=== PATIENT | male | born 1990 | race Caucasian/White ===

== ENCOUNTER 2021-11-07 16:19 | Emergency (ER) | payer MEDICAID ==
[~2021-11-07] VITALS: Ht 208.3 cm; Wt 136.4 kg
[2021-11-07 16:32] VITALS: BP 131/99
[2021-11-07] MEDS ORDERED: FURO40TA4 PO (17:43)
[2021-11-07] MEDS ORDERED: furosemide 20MG tablet PO ONE (17:45)
== END 2021-11-07 18:14 | disposition home or self-care (01) ==
LOC: ER 16:19
DX: N50.89 Other specified disorders of the male genital organs (principal); N50.812 Left testicular pain; N50.811 Right testicular pain; R60.9 Edema, unspecified; Z59.00 Homelessness unspecified
CPT/HCPCS: 99283

== ENCOUNTER 2021-12-03 17:19 | Inpatient (IN) | payer MEDICAID ==
[~2021-12-03] VITALS: Ht 208.3 cm; Wt 171.0 kg
[~2021-12-03 17:19] MED LIST: FURO40TA4 PO; atropine 0.1mg/ml 10ml syringe ONE; epiNEPHrine 0.1mg/ml 10ml syringe ONE; etomidate 2mg/ml inj. ONE; sod chloride 0.9% 10ml flush syringe IV ONE; sodium bicarbonate (8.4%) 1 mEq/ml syringe ONE
[2021-12-03] MEDS ORDERED: vancomycin inj 2,000 MG in normal saline 500ml IV soln 500 ML IV ONE (17:55)
[2021-12-03] MEDS ORDERED: normal saline 1000ML IV soln IVB ONE ×2 (17:55→19:15)
[2021-12-03] MEDS ORDERED: diltiazem 5mg/ml 5ml inj. IV ONE ×2 (18:25→19:50)
[2021-12-03] MEDS ORDERED: calcium gluconate inj. 1 GM in normal saline 100ml IV soln 100 ML IV ONE (18:25)
[2021-12-03] MEDS: CefTRIAXone 2gm/NS 100ml IVPB 100 ML IV SCH (19:02)
--- NOTE | 2021-12-03 19:02 | NUR ---
ER PHYSICIAN WALKED IN PT'S ROOM I WAS PLACING ANOTHER IV ON PT. I REPORTED THAT PT'S HR HAS NOT IMPROVED MUCH W/ FIRST DOSE OF CARDIZEM. HE WILL PUT I ORDERS FOR A CARDIZEM DRIP.
[2021-12-03 19:03] LABS: BASOPHILS # (AUTO) 0.1 X10'3 (0-0.2); BASOPHILS % (AUTO) 0.8 % (0-1); EOSINOPHILS % (AUTO) 0.2 % (0-6); HEMATOCRIT 43.4 % (42.0-52.0); HEMOGLOBIN 14.1 g/dl (14.0-17.9); LYMPHOCYTES # (AUTO) 2.1 X10'3 (1.1-4.8); LYMPHOCYTES % (AUTO) 17.1 % (21-51); MEAN CORPUSCULAR HEMOGLOBIN 28.3 PG (27.0-31.0); MEAN CORPUSCULAR HGB CONC 32.4 g/dL (33.0-36.5); MEAN CORPUSCULAR VOLUME 87.2 FL (78-98); MEAN PLATELET VOLUME 9.3 FL (7.4-10.4); MONOCYTES # (AUTO) 0.6 X10'3 (0-0.9); MONOCYTES % (AUTO) 4.8 % (2-12); NEUTROPHILS # (AUTO) 9.5 X10'3 (1.8-7.7); NEUTROPHILS % (AUTO) 77.1 % (42-75); PLATELET COUNT 104 X10'3 (140-440); RED BLOOD COUNT 4.98 X10'6 (4.70-6.10); RED CELL DISTRIBUTION WIDTH 15.4 % (11.5-14.5); WHITE BLOOD COUNT 12.3 X10'3 (4.5-11.0)
[2021-12-03] MEDS ORDERED: diltiazem-D5W 125mg/125ml 125 ML IV SCH (19:05)
[2021-12-03 19:06] LABS: ALANINE AMINOTRANSFERASE 93 U/L (12-78); ALBUMIN 2.5 G/DL (3.4-5.0); ALBUMIN/GLOBULIN RATIO 0.6 (1.1-1.5); ALKALINE PHOSPHATASE 80 IU/L (46-116); ANION GAP 13 (8-16); ASPARTATE AMINO TRANSFERASE 104 U/L (10-37); BILIRUBIN,TOTAL 4.2 MG/DL (0.1-1.0); BLOOD UREA NITROGEN 18 MG/DL (7-18); CALCIUM 8.3 MG/DL (8.5-10.1); CHLORIDE 100 MMOL/L (99-107); CREATININE 1.06 MG/DL (0.60-1.10); GLUCOSE 119 MG/DL (70-104); MAGNESIUM 1.7 MG/DL (1.5-2.4); POTASSIUM 4.1 MMOL/L (3.5-5.1); SODIUM 134 MMOL/L (135-145); TOTAL CARBON DIOXIDE 21.5 MMOL/L (24-32); TOTAL PROTEIN 6.7 G/DL (6.4-8.2); eGFR 80 ML/MIN
--- NOTE | 2021-12-03 19:24 | NUR ---
PHARMACY IS GETTING ALE BALESIP READY/.
--- NOTE | 2021-12-03 19:54 | NUR ---
DR BURT BACK IN ROOM. UPDATED HIM ON PT'S STATUS
[2021-12-03] MEDS ORDERED: HYDROcodone/acetaminophen 5mg/325mg tablet PO PRN (20:30)
[2021-12-03] MEDS ORDERED: diphenhydrAMINE 50 mg/ml inj IV PRN (20:30)
[2021-12-03] MEDS ORDERED: mag hydrox/Alum hydrox/simeth 30ml oral suspension PO PRN (20:30)
[2021-12-03] MEDS ORDERED: morphine 2 MG/ML inj. syringe IV PRN (20:30)
[2021-12-03] MEDS ORDERED: acetaminophen 325mg tablet PO PRN ×2 (20:30)
[2021-12-03] MEDS ORDERED: ondansetron/PF 4mg/2ml inj IV PRN (20:30)
[2021-12-03] MEDS ORDERED: ondansetron 4mg rapidly disintigrating tab PO PRN (20:30)
[2021-12-03] MEDS ORDERED: diphenhydrAMINE 25mg capsule PO PRN (20:30)
[2021-12-03] MEDS ORDERED: magnesium hydroxide 30ml (MOM) UD suspension PO PRN (20:30)
[2021-12-03] MEDS ORDERED: LIDOcaine 2% 10ml TOPICAL JELLY (Urojet) TP ONE (20:30)
[2021-12-03] MEDS ORDERED: bisacodyl 10mg suppository rectal RC PRN (20:30)
[2021-12-03] MEDS ORDERED: acetaminophen 650mg rectal suppository RC PRN (20:30)
[2021-12-03] MEDS ORDERED: dextrose 50%-water 50ml dispensing syringe IV PRN (20:45)
[2021-12-03] MEDS ORDERED: haloperidol lactate 5mg/ml inj IM PRN (20:45)
[2021-12-03] MEDS ORDERED: haloperidol 5mg tablet PO PRN (20:45)
[2021-12-03] MEDS: normal saline 1000ml 1,000 ML IV SCH (20:48)
[2021-12-03 20:59] LABS: APTT 25 SECONDS (22-32)
[2021-12-03] MEDS ORDERED: temazepam 15mg capsule PO PRN (21:00)
[2021-12-03 21:03] LABS: CLARITY,URINE CLEAR (Clear); GLUCOSE, URINE NEGATIVE (Neg); KETONES,URINE NEGATIVE (Neg); LEUKOCYTE ESTERASE ,URINE NEGATIVE (Neg); NITRITES, URINE NEGATIVE (Neg); OCCULT BLOOD,URINE NEGATIVE (Neg); PH,URINE 5.5 (4.8-8.0); PROTEIN,URINE TRACE mg/dl (Neg)
[2021-12-03 21:04] LABS: COLOR,URINE AMBER (Yellow); UA COLLECTION TYPE URINAL
[2021-12-03] MEDS ORDERED: azithromycin/NS 500mg/250ml 250 ML IV SCH (21:10)
[2021-12-03 21:13] LABS: BACTERIA,URINE NONE SEEN /HPF (Neg); RBC,URINE NONE SEEN /HPF (0-2); SQUAMOUS EPITHELIAL CELL,UR FEW /LPF (FEW); WBC,URINE 0-4 /HPF (0-4)
[2021-12-03 21:14] LABS: MUCUS STRANDS MODERATE /LPF (Neg)
[2021-12-03 21:15] LABS: URINE AMPHETAMINE SCREEN NEGATIVE (Neg); URINE BARBITUATE SCREEN NEGATIVE (Neg); URINE BENZODIAZEPINES SCREEN NEGATIVE (Neg); URINE CANNABINOID SCREEN POSITIVE (Neg); URINE COCAINE SCREEN NEGATIVE (Neg); URINE METHADONE SCREEN NEGATIVE (Neg); URINE OPIATE SCREEN NEGATIVE (Neg); URINE PHENCYCLIDINE SCREEN NEGATIVE (Neg)
[2021-12-03 21:21] LABS: HEMOGLOBIN A1C 6.1 % (4.5-6.2)
[2021-12-03 21:30] LABS: CREATINE KINASE 326 U/L (39-308); ETHANOL < 0.010 GM/DL (0.0-0.010); LIPASE 96 U/L (73-393)
[2021-12-03] MEDS: ipratropium/albuterol 3ml nebule NEB PRN (21:36)
[2021-12-03] MEDS: LORazepam 2 mg/ml vial IV PRN (21:49)
[2021-12-03] MEDS: thiamine 100mg/ml 2ml inj. IV SCH (21:49)
[2021-12-03 21:55] LABS: HIV ANTIBODY 1&2 RAPID NON-REACTIVE (Neg)
--- NOTE | 2021-12-03 22:00 | NUR ---
HAD TO HAVE [address] WOODALL PT'S TESTICLES ARE VERY EDEMATOUS.
--- NOTE | 2021-12-03 22:21 | NUR ---
DR SHUKLA IN ROOM TALKING W/ PT
[2021-12-03] MEDS ORDERED: furosemide 40mg/4ml inj IV ONE (22:25)
[2021-12-04] VITALS (16 sets, daily range): BP systolic 91–133; BP diastolic 59–94
--- NOTE | 2021-12-04 01:17 | NUR ---
0000: Report from LEN Diez at ER to admit pt to PCU unit. 0030: Pt has an order for IV Cardizen to run for 5ml/hr. On arrival on unit, LEN Diez stated she titrated Cardizem IV to 15ml/hr because pt's HR was high. Current active orders for Cardizen drip according to MAR is 5ml/hr. RN on PCU unit called Dr Romo to confirm orders. At this time, pt HR was unstable between 56-68.BP-110/87. MD Romo advised to hold Cardizem drip for now and re-start at 5ml/hr if HR start increasing. 0100: HR is now in the 94-126. BP-124/73. IV cardizem re-started at 5ml/hr per MD Romo's advice. Pt is now sleeping. I will continue to monitor. Unit Charge LEN Mcmillan, aware
--- NOTE | 2021-12-04 01:35 | NUR ---
Can you please re-schedule Zithromax for the pt. He was scheduled for 2099 but not yet given. The time now is 133. Thanks. Paged pharmacy
[2021-12-04] MEDS ORDERED: azithromycin/NS 500mg/250ml 250 ML IV SCH (03:00)
--- NOTE | 2021-12-04 05:30 | NUR ---
Pt appeared very anxious and restless. HR-146. Administered IV Ativan per protocol. Will continue to monitor. 0600: BP- 100/78, P-78. Pt appeared a little relaxed. pt stated "I feel ok and a little calm now".
--- NOTE | 2021-12-04 06:00 | NUR ---
Upon getting on shift this morning, patient was sleeping but respirations were 30 and patient was moaning in his sleep. I woke him up to ask if he was feeling okay and if he needed anything. He stated he was very anxious, but otherwise he was okay. Ativan was given and patient went back to sleep.
--- NOTE | 2021-12-04 06:00 | NUR ---
Patient in room PCU 3027. I have received report from Janna HARRINGTON and had the opportunity to ask questions and assume patient care.
[2021-12-04] MEDS: LORazepam 2 mg/ml vial IV PRN ×3 (06:12→15:22)
[2021-12-04 06:42] LABS: ALANINE AMINOTRANSFERASE 81 U/L (12-78); ALBUMIN 2.2 G/DL (3.4-5.0); ALBUMIN/GLOBULIN RATIO 0.6 (1.1-1.5); ALKALINE PHOSPHATASE 65 IU/L (46-116); ANION GAP 12 (8-16); ASPARTATE AMINO TRANSFERASE 89 U/L (10-37); BILIRUBIN,TOTAL 3.4 MG/DL (0.1-1.0); BLOOD UREA NITROGEN 16 MG/DL (7-18); BUN/CREATININE RATIO 16.5 (5.4-32.0); CALCIUM 7.2 MG/DL (8.5-10.1); CHLORIDE 105 MMOL/L (99-107); CHOL/HDL RATIO 6.5 (0.00-4.99); CHOLESTEROL 84 MG/DL (0-200); CREATININE 0.97 MG/DL (0.60-1.10); GLUCOSE 97 MG/DL (70-104); HDL CHOLESTEROL 13 MG/DL (35-60); LDL CHOLESTEROL 69 MG/DL (50-100); POTASSIUM 3.4 MMOL/L (3.5-5.1); SODIUM 141 MMOL/L (135-145); TOTAL CARBON DIOXIDE 24.2 MMOL/L (24-32); TOTAL PROTEIN 6.1 G/DL (6.4-8.2); TRIGLYCERIDES 61 MG/DL (20-135); eGFR 89 ML/MIN
[2021-12-04 06:43] LABS: BASOPHILS % (AUTO) 0.4 % (0-1); EOSINOPHILS % (AUTO) 0.1 % (0-6); HEMATOCRIT 41.5 % (42.0-52.0); HEMOGLOBIN 13.4 g/dl (14.0-17.9); LYMPHOCYTES # (AUTO) 1.7 X10'3 (1.1-4.8); LYMPHOCYTES % (AUTO) 13.7 % (21-51); MEAN CORPUSCULAR HEMOGLOBIN 28.3 PG (27.0-31.0); MEAN CORPUSCULAR HGB CONC 32.3 g/dL (33.0-36.5); MEAN CORPUSCULAR VOLUME 87.7 FL (78-98); MEAN PLATELET VOLUME 9.1 FL (7.4-10.4); MONOCYTES # (AUTO) 0.6 X10'3 (0-0.9); NEUTROPHILS # (AUTO) 10.3 X10'3 (1.8-7.7); NEUTROPHILS % (AUTO) 80.8 % (42-75); PLATELET COUNT 181 X10'3 (140-440); RED BLOOD COUNT 4.73 X10'6 (4.70-6.10); RED CELL DISTRIBUTION WIDTH 15.8 % (11.5-14.5); WHITE BLOOD COUNT 12.8 X10'3 (4.5-11.0)
--- NOTE | 2021-12-04 07:04 | NUR ---
PAGER ID: [phone] MESSAGE: [id number] Kelly Martin: Pt heart rate trending in 150s-160s. Do you want Cardizem drip adjusted? [facility] [id number]
--- NOTE | 2021-12-04 07:06 | NUR ---
Problems reprioritized. Patient report given, LEN Eagle, questions answered & plan of care reviewed with .
--- NOTE | 2021-12-04 07:10 | NUR ---
Patient HR trending in 150s-160s. Brian paged and telephone order was given to titrate cardizem drip from 5ml/hr to 10ml/hr. Patient continued to trend at the same rate following this rate change.
--- NOTE | 2021-12-04 07:15 | NUR ---
Verbal telephone order from MD to titrate cardizem drip to 10ml/hr from 5ml/hr
[2021-12-04] MEDS ORDERED: pantoprazole 40mg Tablet.DR PO SCH (07:30)
[2021-12-04] MEDS ORDERED: cefTRIAXone 1g/NS 100ml IVPB 100 ML IV SCH (08:00)
[2021-12-04] MEDS: CefTRIAXone 2gm/NS 100ml IVPB 100 ML IV SCH (08:00)
[2021-12-04] MEDS ORDERED: potassium Cl 20 mEq SR tablet PO PRN (08:20)
[2021-12-04] MEDS ORDERED: magnesium 2GM in 50ml NS 50 ML IV PRN (08:20)
[2021-12-04] MEDS ORDERED: magnesium 4gm in 100ml NS 100 ML IV PRN (08:20)
[2021-12-04] MEDS ORDERED: potassium CL 10mEq/100ml bag 100 ML IV PRN (08:20)
[2021-12-04] MEDS ORDERED: diltiazem-NS 100mg/100ml 100 ML IV SCH (09:00)
[2021-12-04] MEDS: nicotine 21mg patch - 24 hr TD SCH (10:16)
[2021-12-04] MEDS: thiamine 100mg/ml 2ml inj. IV SCH ×3 (10:16→21:00)
[2021-12-04] MEDS: docusate sod 100mg capsule PO SCH ×2 (10:17→20:00)
[2021-12-04] MEDS: folic acid 1mg/0.2ml inj IV SCH (10:17)
--- NOTE | 2021-12-04 13:00 | NUR ---
Patient still trending 150s/160s. Respirations 42 and patient starting to have problems breathing. Was spitting up bright red blood that he states is "from his swollen tonsils" but this was not told to me in report, nor had i noticed it earlier in my shift. Dr Brian Carey.
--- NOTE | 2021-12-04 13:18 | NUR ---
PAGER ID: [phone] MESSAGE: [id number] Kelly Martin: Heart rate continues to trend 150s/160s. Patients respirations are 42. Spitting up bright red blood that is new to me. Angeli [facility] ext [phone]
[2021-12-04] MEDS ORDERED: furosemide 10 MG/1 ML 10ml inj IV ONE (13:50)
[2021-12-04] MEDS ORDERED: carVEDilol 3.125mg tablet PO SCH ×2 (13:50→20:00)
--- NOTE | 2021-12-04 14:00 | NUR ---
Dr Torres called for another nurses patient, i ended up picking up the phone and asked her if she had gotten my page. She said she had not. I let her know that patient was still trending high, as well as the bright red blood and trouble breathing. She asked me to look at his echo report and tell her what it said. I read off the report to her and she said to stop the patient cardizem drip STAT, and ordered the following be done: 60mg Lasix STAT dose and then BID. 3.125 coreg STAT, then BID. Lisinopril 5mg STAT, then BID. Said to put patient on bipap if he continued to have issues breathing.
[2021-12-04] MEDS: lisinopril 5mg tablet PO SCH (14:15)
--- NOTE | 2021-12-04 14:21 | NUR ---
Rapid response called due to patient respirations being high, patient saying he couldnt breathe, low 02 saturation of 80, extreme anxiety. paged.
[2021-12-04] MEDS: ipratropium/albuterol 3ml nebule NEB PRN (14:25)
[2021-12-04] MEDS ORDERED: amiodarone 150mg/dext, iso-os 100 ML IV ONE (14:35)
[2021-12-04] MEDS ORDERED: digoxin 250mcg/ml 2ml ampule IV ONE (14:35)
[2021-12-04 14:44] LABS: ABG BASE EXCESS -5.3 mmol/L (-2.0-2.0); ABG HCO3 17.5 mmol/L (22.0-26.0); ABG OXYGEN SATURATION 88.7 % (94-97); ABG PCO2 (T) 27.5 mmHg (35.0-48.0); ABG PO2 (T) 55.7 mmHg (75.0-100.0); ALLEN'S TEST POSITIVE; FCOHb 1.3 % (0.0-3.9); FLOW 3 L/min; FMetHb 0.4 % (0.0-1.5); FO2Hb 87.2 % (94-97); TOTAL HEMOGLOBIN 15.4 G/dl (14.0-18.0)
--- NOTE | 2021-12-04 15:34 | NUR ---
PAGER ID: [phone] MESSAGE: [id number] Kelly Martin: post 60mg Lasix, only 50cc out in 80 mins. [facility] 0018
--- NOTE | 2021-12-04 15:35 | NUR ---
Second rapid response called. Patient continuing to destat with 02 in 70s. paged. Patient had only 50 output from lasix. Catheter was not able to drain, patient has extreme edema, especially in scrotal area. Doctor said to remove samaniego to see if patient could urinate on his own. He was not able to. Tried to put in new samaniego, but could not find insertion site of penis due to such extreme edema. Bladder scanned for greater than 1359 volume. notified. stated she could page urologist. Patient continued to have extremely high respirations and was panicking stating "I cant breathe! i tap out! please please i cant breathe" patient ripped bipap off several times. RT switched to high flow machine and patient still stated he could not breathe. Ativan and haldol administered to try and calm patients anxiety. Encouraged him to take deep breaths and try to calm down and not fight staff on trying to help him. Patient started to calm down a little bit after meds, but still continued to have high respirations and trouble breathing.
[2021-12-04 15:51] LABS: ABG HCO3 13.9 mmol/L (22.0-26.0); ABG OXYGEN SATURATION 89.7 % (94-97); ABG PCO2 (T) 23.9 mmHg (35.0-48.0); ABG PO2 (T) 62.2 mmHg (75.0-100.0); ALLEN'S TEST POSITIVE; FCOHb 0.6 % (0.0-3.9); FLOW 40 L/min; FMetHb 0.3 % (0.0-1.5); FO2Hb 88.9 % (94-97); TOTAL HEMOGLOBIN 15.6 G/dl (14.0-18.0)
[2021-12-04] MEDS: amiodarone/D5 360MG/200ML BAG 200 ML IV SCH ×2 (15:55→21:49)
--- NOTE | 2021-12-04 16:08 | NUR ---
BLADDER SCAN SHOWED GREATER THAN 1700, MD SAID TO PULL WOODALL CATH TO SEE IF PATIENT CAN VOID. ATTEMPT REINSERTION IF UNABLE TO VOID PER MD. REQUESTING UROLOGY CONSULT.
[2021-12-04 16:23] LABS: ALANINE AMINOTRANSFERASE 94 U/L (12-78); ALBUMIN 2.6 G/DL (3.4-5.0); ALBUMIN/GLOBULIN RATIO 0.6 (1.1-1.5); ALKALINE PHOSPHATASE 80 IU/L (46-116); ANION GAP 17 (8-16); ASPARTATE AMINO TRANSFERASE 102 U/L (10-37); BILIRUBIN,TOTAL 3.8 MG/DL (0.1-1.0); BLOOD UREA NITROGEN 19 MG/DL (7-18); CHLORIDE 100 MMOL/L (99-107); GLUCOSE 127 MG/DL (70-104); POTASSIUM 4.4 MMOL/L (3.5-5.1); SODIUM 136 MMOL/L (135-145); TOTAL CARBON DIOXIDE 18.8 MMOL/L (24-32); TOTAL PROTEIN 7.3 G/DL (6.4-8.2); eGFR > 90 ML/MIN
[2021-12-04 16:25] LABS: BASOPHILS # (AUTO) 0.1 X10'3 (0-0.2); BASOPHILS % (AUTO) 0.3 % (0-1); EOSINOPHILS % (AUTO) 0 % (0-6); LYMPHOCYTES # (AUTO) 3.2 X10'3 (1.1-4.8); LYMPHOCYTES % (AUTO) 15.8 % (21-51); MEAN PLATELET VOLUME 9.4 FL (7.4-10.4); MONOCYTES # (AUTO) 1.9 X10'3 (0-0.9); MONOCYTES % (AUTO) 9.5 % (2-12); NEUTROPHILS # (AUTO) 14.9 X10'3 (1.8-7.7); NEUTROPHILS % (AUTO) 74.4 % (42-75); PLATELET COUNT 191 X10'3 (140-440)
--- NOTE | 2021-12-04 16:30 | NUR ---
Patient started to panic again saying he couldnt breathe. "I cant breathe, please help me. I need a break, im tapping out, im so tired and so thirsty" Vital signs were 79 02 saturation, BP 155/110, i came and told charge nurse immediately, and went right back into the room. RN walked by the room and noticed patient was panicking and i needed help. Patient turned to his right side as he said he could breath better on his side. Started to look purple in his facial area, and then he turned over to his left side. Suddenly patient became unresponsive and stopped breathing. Allyn blue called. Compressions started at 1640. Code team arrived at 1642. Patient transported to ICU at 1713.
[2021-12-04 16:56] LABS: HEMATOCRIT 44.1 % (42.0-52.0); HEMOGLOBIN 14.1 g/dl (14.0-17.9); MEAN CORPUSCULAR HEMOGLOBIN 29.2 PG (27.0-31.0); MEAN CORPUSCULAR HGB CONC 31.9 g/dL (33.0-36.5); MEAN CORPUSCULAR VOLUME 91.5 FL (78-98); RED BLOOD COUNT 4.82 X10'6 (4.70-6.10); RED CELL DISTRIBUTION WIDTH 15.6 % (11.5-14.5)
[2021-12-04 17:44] LABS: ABG BASE EXCESS -11.3 mmol/L (-2.0-2.0); ABG HCO3 15.5 mmol/L (22.0-26.0); ABG OXYGEN SATURATION 88.9 % (94-97); ABG PCO2 (T) 42.4 mmHg (35.0-48.0); ABG PO2 (T) 79.5 mmHg (75.0-100.0); ALLEN'S TEST POSITIVE; FCOHb 0.6 % (0.0-3.9); FMetHb 0.4 % (0.0-1.5); PATIENT TEMPERATURE 39.4; PEEP 5 cm H2O; RESPIRATORY RATE 18 b/min; TIDAL VOLUME 500 mL; TOTAL HEMOGLOBIN 14.1 G/dl (14.0-18.0)
[2021-12-04] MEDS ORDERED: DOBUTamine-DoBUTrex 500mg/D5W 250 ML IV PRN ×2 (18:20→21:20)
[2021-12-04 18:42] LABS: SODIUM 133 MMOL/L (135-145)
[2021-12-04 18:45] LABS: BASOPHILS % (AUTO) 0.2 % (0-1); EOSINOPHILS % (AUTO) 0.1 % (0-6); HEMATOCRIT 42.2 % (42.0-52.0); HEMOGLOBIN 13.2 g/dl (14.0-17.9); LYMPHOCYTES # (AUTO) 2.5 X10'3 (1.1-4.8); LYMPHOCYTES % (AUTO) 14.7 % (21-51); MEAN CORPUSCULAR HEMOGLOBIN 28.4 PG (27.0-31.0); MEAN CORPUSCULAR HGB CONC 31.4 g/dL (33.0-36.5); MEAN CORPUSCULAR VOLUME 90.3 FL (78-98); MEAN PLATELET VOLUME 9.7 FL (7.4-10.4); MONOCYTES % (AUTO) 5.5 % (2-12); NEUTROPHILS # (AUTO) 13.7 X10'3 (1.8-7.7); NEUTROPHILS % (AUTO) 79.5 % (42-75); PLATELET COUNT 173 X10'3 (140-440); RED BLOOD COUNT 4.67 X10'6 (4.70-6.10); RED CELL DISTRIBUTION WIDTH 16.7 % (11.5-14.5); WHITE BLOOD COUNT 17.3 X10'3 (4.5-11.0)
--- NOTE | 2021-12-04 18:47 | NUR ---
I was in patients room from 1300 until ICU transfer at 1713. Patient needed 1:1 care and was not in appropriate condition for this floor.
[2021-12-04 18:55] LABS: APTT 31 SECONDS (22-32); D-DIMER 28.41 MG/L FEU (0-0.50)
[2021-12-04 19:05] LABS: ALANINE AMINOTRANSFERASE 96 U/L (12-78); ALBUMIN 2.4 G/DL (3.4-5.0); ALBUMIN/GLOBULIN RATIO 0.5 (1.1-1.5); ALKALINE PHOSPHATASE 76 IU/L (46-116); ANION GAP 15 (8-16); ASPARTATE AMINO TRANSFERASE 113 U/L (10-37); BILIRUBIN,TOTAL 3.6 MG/DL (0.1-1.0); BLOOD UREA NITROGEN 20 MG/DL (7-18); BUN/CREATININE RATIO 11.6 (5.4-32.0); CALCIUM 7.9 MG/DL (8.5-10.1); CHLORIDE 99 MMOL/L (99-107); CREATININE 1.72 MG/DL (0.60-1.10); MAGNESIUM 2.1 MG/DL (1.5-2.4); PHOSPHORUS 6.2 MG/DL (2.3-4.5); POTASSIUM 4.6 MMOL/L (3.5-5.1); TOTAL CARBON DIOXIDE 19.3 MMOL/L (24-32); TOTAL PROTEIN 6.8 G/DL (6.4-8.2); eGFR 46 ML/MIN
[2021-12-04 19:14] LABS: GLUCOSE 123 MG/DL (70-104)
[2021-12-04] MEDS ORDERED: furosemide 10 MG/1 ML 10ml inj IV SCH (20:00)
[2021-12-04] MEDS ORDERED: lisinopril 5mg tablet PO SCH (20:00)
[2021-12-04] MEDS ORDERED: NORepinephrine 8mg/ 250ml NS 250 ML IV ONE ×2 (20:06→22:22)
--- NOTE | 2021-12-04 21:30 | NUR ---
RN Note -Dr. Carbone still at bedside putting in lines and stabilizing patient. Pt on multiple cardiac drips. Pt has not had any purposeful responses to stimuli, titrating sedation for hemodynamic stability.
[2021-12-04] MEDS: propofol 1000mg/100ml bottle 100 ML IV SCH (21:44)
[2021-12-04 22:01] LABS: ABG HCO3 20.3 mmol/L (22.0-26.0); ABG OXYGEN SATURATION 97.5 % (94-97); ABG PCO2 (T) 31.2 mmHg (35.0-48.0); ABG PO2 (T) 92.4 mmHg (75.0-100.0); ALLEN'S TEST POSITIVE; FCOHb 0.4 % (0.0-3.9); FMetHb 0.4 % (0.0-1.5); FO2Hb 96.7 % (94-97); PATIENT TEMPERATURE 36.8; PEEP 5 cm H2O; RESPIRATORY RATE 18 b/min; TIDAL VOLUME 500 mL; TOTAL HEMOGLOBIN 14.8 G/dl (14.0-18.0)
[2021-12-04 22:04] LABS: OXYGEN SATURATION (MIXED VEN) 55.7 % (60-80); PO2 MIXED VENOUS (TEMP COR) 27.7 mmHg (35-46)
[2021-12-04] MEDS: epiNEPHrine inj 10 MG in normal saline 250ml IV soln 240 ML IV PRN (22:45)
[2021-12-05] VITALS (34 sets, daily range): BP systolic 92–199; BP diastolic 57–91
[2021-12-05] MEDS ORDERED: vancomycin 1,750 MG in NS 350ml IV soln IV ONE ×2
[2021-12-05 02:41] LABS: ALANINE AMINOTRANSFERASE 146 U/L (12-78); ALBUMIN 2.3 G/DL (3.4-5.0); ALBUMIN/GLOBULIN RATIO 0.6 (1.1-1.5); ALKALINE PHOSPHATASE 70 IU/L (46-116); ANION GAP 10 (8-16); ASPARTATE AMINO TRANSFERASE 217 U/L (10-37); BILIRUBIN,TOTAL 3.5 MG/DL (0.1-1.0); BLOOD UREA NITROGEN 22 MG/DL (7-18); BUN/CREATININE RATIO 17.7 (5.4-32.0); CALCIUM 7.7 MG/DL (8.5-10.1); CHLORIDE 102 MMOL/L (99-107); CREATININE 1.24 MG/DL (0.60-1.10); GLUCOSE 165 MG/DL (70-104); POTASSIUM 3.8 MMOL/L (3.5-5.1); SODIUM 135 MMOL/L (135-145); TOTAL CARBON DIOXIDE 22.6 MMOL/L (24-32); TOTAL PROTEIN 6.4 G/DL (6.4-8.2); TRIGLYCERIDES 56 MG/DL (20-135); eGFR 67 ML/MIN
[2021-12-05 02:43] LABS: BASOPHILS % (AUTO) 0.1 % (0-1); EOSINOPHILS % (AUTO) 0 % (0-6); HEMATOCRIT 39.8 % (42.0-52.0); HEMOGLOBIN 12.7 g/dl (14.0-17.9); LYMPHOCYTES # (AUTO) 1.3 X10'3 (1.1-4.8); LYMPHOCYTES % (AUTO) 8.6 % (21-51); MEAN CORPUSCULAR HEMOGLOBIN 27.6 PG (27.0-31.0); MEAN CORPUSCULAR VOLUME 86.4 FL (78-98); MONOCYTES # (AUTO) 0.6 X10'3 (0-0.9); MONOCYTES % (AUTO) 4.3 % (2-12); NEUTROPHILS # (AUTO) 12.8 X10'3 (1.8-7.7); PLATELET COUNT 123 X10'3 (140-440); RED CELL DISTRIBUTION WIDTH 15.6 % (11.5-14.5); WHITE BLOOD COUNT 14.7 X10'3 (4.5-11.0)
[2021-12-05 03:26] LABS: ABG BASE EXCESS -2.9 mmol/L (-2.0-2.0); ABG HCO3 19.9 mmol/L (22.0-26.0); ABG OXYGEN SATURATION 95.2 % (94-97); ABG PCO2 (T) 28.7 mmHg (35.0-48.0); ABG PO2 (T) 72.2 mmHg (75.0-100.0); ALLEN'S TEST POSITIVE; FCOHb 0.2 % (0.0-3.9); FMetHb 0.4 % (0.0-1.5); FO2Hb 94.6 % (94-97); PATIENT TEMPERATURE 36.5; PEEP 5 cm H2O; RESPIRATORY RATE 18 b/min; TIDAL VOLUME 500 mL
[2021-12-05 03:28] LABS: OXYGEN SATURATION (MIXED VEN) 61.2 % (60-80); PO2 MIXED VENOUS (TEMP COR) 34.6 mmHg (35-46)
[2021-12-05] MEDS: amiodarone/D5 360MG/200ML BAG 200 ML IV SCH ×4 (04:56→20:14)
[2021-12-05] MEDS: nicotine 21mg patch - 24 hr TD SCH (08:00)
[2021-12-05] MEDS ORDERED: vancomycin/NS 1 GM ADD-VANTAGE 250 ML IV SCH (08:00)
[2021-12-05] MEDS: piperacillin/tazo 3.375gm/50ml 50 ML IV SCH ×3 (08:00→15:56)
[2021-12-05] MEDS: docusate sod 100mg capsule PO SCH ×2 (08:00→20:00)
[2021-12-05] MEDS ORDERED: amiodarone 150mg/dext, iso-os 100 ML IV ONE ×2 (08:00→08:06)
[2021-12-05 08:35] LABS: MAGNESIUM 1.6 MG/DL (1.5-2.4); PHOSPHORUS 4.6 MG/DL (2.3-4.5)
[2021-12-05 09:50] LABS: PLATELET COUNT 150 X10'3 (140-440)
[2021-12-05 09:52] LABS: APTT 32 SECONDS (22-32)
--- NOTE | 2021-12-05 09:56 | NUR ---
hemodynamically unstable, Dr Carbone in x 2 this am. Titrating dobutamine and levophed per Dr Carbone after discussion this am. Increased dobutmine but had runs of vtach monitor didnt alarm so decreased back to 5, cardiac perfusion seems to be best with map around 80 (pt on levophed) as demonstrated by art line perfusion. Too unstable to turn this am. Dr Carbone aware that only pulse obtained on lower extremites in left post tib. Peep decreased from [address] Carbone order. weaned fio2 to 90 but perfusion decreased so returned to 100%. Dr Carbone advanced PA line to 58 with wedge of 16
[2021-12-05] MEDS: milrinone (Primacor) 20mg/D5W 100 ML IV PRN ×4 (10:42→23:09)
[2021-12-05] MEDS ORDERED: midazolam 100mg in NS 100ml 100 ML IV PRN ×2 (11:00→11:05)
[2021-12-05] MEDS ORDERED: VANCOmycin 1250MG/NS 250ml Bag 250 ML IV SCH (12:00)
[2021-12-05] MEDS: vancomycin/NS 1 GM ADD-VANTAGE 250 ML IV SCH ×2 (12:14→20:15)
--- NOTE | 2021-12-05 12:15 | NUR ---
DESAT TO 77% WHEN TURNED TO PLACE POSTERIOR DEFIB PAD
--- NOTE | 2021-12-05 12:36 | NUR ---
sync. cardioversion 100J x1 to SR/ST
[2021-12-05] MEDS: thiamine 100mg/ml 2ml inj. IV SCH ×3 (13:00→21:32)
--- NOTE | 2021-12-05 13:30 | NUR ---
BP LABILE LEVOPHED REQUIREMENT GREATLY INCREASED UP TO .35MCG/KG/MIN CONTINUES TO BE HYPOXIC WITH SATS IN THE HIGH TO MID 80S, DR QUAN UPDATED, GETTING ABG.
[2021-12-05 13:40] LABS: ABG BASE EXCESS 0.2 mmol/L (-2.0-2.0); ABG HCO3 24.8 mmol/L (22.0-26.0); ABG PCO2 (T) 38.6 mmHg (35.0-48.0); ABG PO2 (T) 52.1 mmHg (75.0-100.0); FCOHb 0.4 % (0.0-3.9); FMetHb 0.3 % (0.0-1.5); FO2Hb 88.4 % (94-97); PATIENT TEMPERATURE 36.1; PEEP 5 cm H2O; RESPIRATORY RATE 18 b/min; TIDAL VOLUME 1114 mL
--- NOTE | 2021-12-05 13:47 | NUR ---
Martinez Consult: Pt intubated s/p code blue DX septic shock, AMS, heart failure EF 10-15%, RON, and lactic acidosis w/ hx IVDA and heavy etoh per EMR. NPO w/ OG in place MAP 77 this AM during rounds. Receiving thiamine, folic acid for etoh hx. Martinez 12 w/ L dorsal foot full thickness wound per WOC note. LBM 12/04 receiving routine colace per EMR. TF recs below in case prolonged intubation. Noted pt ht 82in per EMR; RD d/w RN pt likely ~76in pending new ht. Will adjust recs below using 76in for IBW; current BMI 38.9 using that height. Will continue to monitor. Rec: 1. IF TF; Vital HP at 100ml/hr goal would provide 2400ml volume/day, 2400 kcals, 2006ml water, and 210g protein. 2. IF TF; additional water flush per clarifier operator w/ serum Na 135 mmol/L this AM 3. IF TF; PALB Q /; daily wts 4. routine thiamine and folic acid supplementation for etoh per MD 5. routine bowel care 6. upon extubation; advance diet as medically indicated to regular; consider heart healthy restriction if PO adequate and serum Na WNL Addendum: 12/05/21 at [address] Amended: Links added.
[2021-12-05] MEDS: lisinopril 5mg tablet PO SCH (13:50)
--- NOTE | 2021-12-05 13:59 | NUR ---
BP AND PT VERY UNSTABLE THIS SHIFT, UNFORTUNATELY IV SPREADSHEET DOES NOT ACCURATELY DISPLAY ACTUAL MIN TO MIN/ HOUR TO HOUR TITRATION SINCE TIME DID NOT ALLOW TO ACCURATELY CHART EACH CHANGE. DR QUAN AWARE
[2021-12-05] MEDS: pantoprazole 40MG/NS 100ML BAG 100 ML IV SCH (14:18)
[2021-12-05] MEDS: folic acid 1mg/0.2ml inj IV SCH (14:18)
[2021-12-05] MEDS: propofol 1000mg/100ml bottle 100 ML IV SCH (18:07)
--- NOTE | 2021-12-05 18:30 | NUR ---
I have received report and assumed care of a 31 year old male admitted 12/03/21 with Afib, bilat lower extremity ulcerative dermatitis, ETOH, liver cirrhosis IV drug abuse, marijuana abuse CHF and sepsis. Pt coded on 12/04 ef 10-15%. Pt is in bed on a mechanical ventilator 100% fio2, Levophed drip in place to keep MAP greater then 60, Epi drip in place to keep MAP greater then 60, Amiodarone drip in place for arrhythmia control, Primacor in place to keep CI greater then 2.5, all vasoactive medications via CVL. Pt does not appear to respond to verbal stimuli, does slightly withdraw to deep painful stimuli to left foot. Pt is on 100% FIO2 desats down to low 80's with minimal airway suctioning, sputum is quite bloody. Fentanyl drip in place for perceived pain control, low dose versed in place for sedation.
[2021-12-05] MEDS: NORepinephrine 8mg/ 250ml NS 250 ML IV PRN ×2 (18:49→23:14)
[2021-12-05] MEDS: FENTANYL-0.9 % NACL/PF 100 ML IV PRN (18:50)
--- NOTE | 2021-12-05 20:00 | NUR ---
Spoke to Dr. Carbone, new orders received to times and parameters to titrating medication, updated on vascular study of bilateral lower extremity, no new orders at this time regarding bilateral dalia thrombus at the popliteal. As of note pt RT eye gaze upward and to the rt left eye gazes downward.
[2021-12-05] MEDS: mupirocin 2% ointment 22GM TP SCH (20:15)
[2021-12-05] MEDS ORDERED: normal saline 500ml IV soln 500 ML IV ONE (20:30)
[2021-12-05] MEDS: normal saline 1000ml 1,000 ML IV SCH (20:30)
[2021-12-05] MEDS ORDERED: LORazepam 2 mg/ml vial IV PRN (20:45)
[2021-12-05] MEDS ORDERED: LORazepam 1 MG tablet PO PRN (20:45)
[2021-12-05] MEDS: epiNEPHrine inj 10 MG in normal saline 250ml IV soln 240 ML IV PRN (23:10)
--- NOTE | 2021-12-05 23:56 | NUR ---
Attempt to turn pt fully, pt sats dropped to 73%, face became quite dark, blood pressure decreased to a MAP of 60, it took nearly 1 hour for sPo2 to return to greater then 90%, will continue to shift pt side to side, elivating extremities as tolerated to off load pressure and maintain skin integrity.
[2021-12-06] VITALS (34 sets, daily range): BP systolic 92–118; BP diastolic 60–84
[2021-12-06] MEDS: piperacillin/tazo 3.375gm/50ml 50 ML IV SCH ×3 (00:41→16:37)
[2021-12-06] MEDS: FENTANYL-0.9 % NACL/PF 100 ML IV PRN ×2 (00:42→23:18)
[2021-12-06] MEDS: amiodarone/D5 360MG/200ML BAG 200 ML IV SCH ×4 (01:53→22:21)
[2021-12-06] MEDS: NORepinephrine 8mg/ 250ml NS 250 ML IV PRN ×2 (01:54→05:30)
[2021-12-06 02:30] LABS: BASOPHILS % (AUTO) 0.1 % (0-1); EOSINOPHILS % (AUTO) 0.2 % (0-6); HEMATOCRIT 40.3 % (42.0-52.0); HEMOGLOBIN 13.1 g/dl (14.0-17.9); LYMPHOCYTES # (AUTO) 1.2 X10'3 (1.1-4.8); MEAN CORPUSCULAR HGB CONC 32.6 g/dL (33.0-36.5); MEAN CORPUSCULAR VOLUME 85.9 FL (78-98); MEAN PLATELET VOLUME 8.9 FL (7.4-10.4); MONOCYTES # (AUTO) 0.9 X10'3 (0-0.9); MONOCYTES % (AUTO) 4.7 % (2-12); NEUTROPHILS # (AUTO) 17.4 X10'3 (1.8-7.7); PLATELET COUNT 166 X10'3 (140-440); WHITE BLOOD COUNT 19.6 X10'3 (4.5-11.0)
[2021-12-06 02:42] LABS: ALANINE AMINOTRANSFERASE 141 U/L (12-78); ALBUMIN 2.3 G/DL (3.4-5.0); ALBUMIN/GLOBULIN RATIO 0.5 (1.1-1.5); ALKALINE PHOSPHATASE 72 IU/L (46-116); ANION GAP 6 (8-16); ASPARTATE AMINO TRANSFERASE 152 U/L (10-37); BLOOD UREA NITROGEN 20 MG/DL (7-18); CALCIUM 8.2 MG/DL (8.5-10.1); CHLORIDE 104 MMOL/L (99-107); CREATININE 0.91 MG/DL (0.60-1.10); GLUCOSE 129 MG/DL (70-104); MAGNESIUM 1.6 MG/DL (1.5-2.4); POTASSIUM 3.4 MMOL/L (3.5-5.1); SODIUM 137 MMOL/L (135-145); TOTAL CARBON DIOXIDE 26.9 MMOL/L (24-32); TOTAL PROTEIN 6.7 G/DL (6.4-8.2); eGFR > 90 ML/MIN
[2021-12-06 02:42] LABS: ABG BASE EXCESS 0.1 mmol/L (-2.0-2.0); ABG HCO3 24.8 mmol/L (22.0-26.0); ABG OXYGEN SATURATION 90.9 % (94-97); ABG PCO2 (T) 41.1 mmHg (35.0-48.0); ABG PO2 (T) 62.3 mmHg (75.0-100.0); FCOHb 0.5 % (0.0-3.9); FMetHb 0.3 % (0.0-1.5); FO2Hb 90.2 % (94-97); PATIENT TEMPERATURE 37.4; PEEP 7 cm H2O; RESPIRATORY RATE 18 b/min; TIDAL VOLUME 500 mL; TOTAL HEMOGLOBIN 14.4 G/dl (14.0-18.0)
[2021-12-06 02:45] LABS: D-DIMER 29.22 MG/L FEU (0-0.50)
[2021-12-06 02:48] LABS: APTT 29 SECONDS (22-32)
[2021-12-06] MEDS: milrinone (Primacor) 20mg/D5W 100 ML IV PRN ×2 (03:26→20:32)
[2021-12-06] MEDS: potassium Cl 20mEq/100mL bag 100 ML IV PRN ×3 (03:26→04:57)
[2021-12-06] MEDS: vancomycin/NS 1 GM ADD-VANTAGE 250 ML IV SCH ×3 (03:26→20:32)
--- NOTE | 2021-12-06 05:37 | NUR ---
Rounded with Dr. Santos, multiple attempts by Dr santos to obtain better oxygenation ultimately causing the CI to drop to 1.8, ventilator settings readjusted to prior settings, pt slowly improving back to where he was prior to adjustment attempts. Reviewed that pt has made virtually no urine for several hours no new orders regarding urine output .
[2021-12-06] MEDS: pantoprazole 40MG/NS 100ML BAG 100 ML IV SCH (07:33)
[2021-12-06] MEDS: thiamine 100mg/ml 2ml inj. IV SCH ×2 (07:34→13:00)
[2021-12-06] MEDS ORDERED: chlorhexidine gluc 4% **topical ** 120ml btl. TP ONE (08:00)
[2021-12-06] MEDS: docusate sod 100mg capsule PO SCH ×2 (08:00→20:00)
[2021-12-06] MEDS: nicotine 21mg patch - 24 hr TD SCH (08:00)
[2021-12-06] MEDS: mupirocin 2% ointment 22GM TP SCH ×2 (08:00→20:32)
[2021-12-06] MEDS: folic acid 1mg/0.2ml inj IV SCH (09:20)
[2021-12-06] MEDS ORDERED: VANCOMYCIN LEVEL IV ONE (11:30)
[2021-12-06 12:12] LABS: HBSAG SCREEN Negative (Negative); HEPATITIS C ANTIBODY >11.0 s/co ratio (0.0-0.9); THIIODOTHRONINE, FREE, SERUM 1.7 pg/mL (2.0-4.4)
--- NOTE | 2021-12-06 12:44 | NUR ---
[employer] NOTIFIED REF # [id number]
--- NOTE | 2021-12-06 13:40 | NUR ---
TPN Consult: Pt family found now deciding to go comfort measures w/ no PN at this time per RN. Will monitor for changes in code status. Addendum: 12/06/21 at [address] Amended: Links added.
[2021-12-06] MEDS: lisinopril 5mg tablet PO SCH (13:50)
[2021-12-06] MEDS: propofol 1000mg/100ml bottle 100 ML IV SCH (18:34)
--- NOTE | 2021-12-06 18:35 | NUR ---
I have received report and assumed care of pt. Family at bedside pt has been made a DNR, plans to become comfort care once family has had the opportunity to have closure with the pt. Will continue to attempt to wean medication per MD orders. All vasoactive medication via CVL.
[2021-12-07] VITALS (33 sets, daily range): BP systolic 94–116; BP diastolic 59–76
[2021-12-07] MEDS: milrinone (Primacor) 20mg/D5W 100 ML IV PRN ×6 (00:08→23:45)
[2021-12-07] MEDS: enoxaparin 40mg/0.4ml syringe SUBCUT SCH ×2 (00:10→20:35)
[2021-12-07] MEDS: piperacillin/tazo 3.375gm/50ml 50 ML IV SCH ×4 (00:10→20:34)
[2021-12-07] MEDS: NORepinephrine 8mg/ 250ml NS 250 ML IV PRN ×3 (00:53→18:59)
--- NOTE | 2021-12-07 03:14 | NUR ---
per moms request we will not do blood work at this time, as she would rather spend this time with her son
[2021-12-07] MEDS: vancomycin/NS 1 GM ADD-VANTAGE 250 ML IV SCH ×4 (03:45→20:34)
[2021-12-07] MEDS: amiodarone/D5 360MG/200ML BAG 200 ML IV SCH ×4 (03:46→22:37)
[2021-12-07] MEDS ORDERED: NORepinephrine 1 mg/ml inj IV ONE (08:00)
[2021-12-07] MEDS ORDERED: DOPamine/D5W 400mg/250ml bag IV ONE (08:00)
[2021-12-07] MEDS: nicotine 21mg patch - 24 hr TD SCH (08:00)
[2021-12-07] MEDS: docusate sod 100mg capsule PO SCH ×2 (08:00→18:32)
[2021-12-07] MEDS ORDERED: thiamine 100mg tablet PO SCH (08:00)
[2021-12-07] MEDS: pantoprazole 40MG/NS 100ML BAG 100 ML IV SCH (08:21)
[2021-12-07] MEDS: mupirocin 2% ointment 22GM TP SCH ×2 (08:22→20:34)
[2021-12-07] MEDS: FENTANYL-0.9 % NACL/PF 100 ML IV PRN ×2 (10:34→20:57)
[2021-12-07] MEDS: lisinopril 5mg tablet PO SCH (13:50)
[2021-12-07] MEDS: epiNEPHrine inj 10 MG in normal saline 250ml IV soln 240 ML IV PRN (15:31)
--- NOTE | 2021-12-07 18:26 | NUR ---
Problems reprioritized. Patient report given, questions answered & plan of care reviewed with Ella HARRINGTON.
--- NOTE | 2021-12-07 18:30 | NUR ---
Patient in room CICU 2016. I have received report from LEN Villegas and had the opportunity to ask questions and assume patient care.
[2021-12-07] MEDS: propofol 1000mg/100ml bottle 100 ML IV SCH (19:01)
[2021-12-07] MEDS: normal saline 1000ml 1,000 ML IV SCH (20:30)
[2021-12-07] MEDS ORDERED: LORazepam 2 mg/ml vial IV PRN (20:45)
[2021-12-07] MEDS ORDERED: LORazepam 1 MG tablet PO PRN (20:45)
[2021-12-08] VITALS (14 sets, daily range): BP systolic 108–125; BP diastolic 63–78
[2021-12-08] MEDS ORDERED: fentaNYL 50mcg/ml PF inj. 2,500 MCG in normal saline 250ml IV soln 200 ML IV SCH ×2
[2021-12-08] MEDS: NORepinephrine 8mg/ 250ml NS 250 ML IV PRN ×2 (02:10→09:22)
[2021-12-08] MEDS: amiodarone/D5 360MG/200ML BAG 200 ML IV SCH (02:10)
[2021-12-08 04:49] LABS: ALANINE AMINOTRANSFERASE 112 U/L (12-78); ALBUMIN 1.9 G/DL (3.4-5.0); ALBUMIN/GLOBULIN RATIO 0.4 (1.1-1.5); ALKALINE PHOSPHATASE 67 IU/L (46-116); ANION GAP 5 (8-16); ASPARTATE AMINO TRANSFERASE 117 U/L (10-37); BASOPHILS % (AUTO) 0.4 % (0-1); BILIRUBIN,TOTAL 3.7 MG/DL (0.1-1.0); BLOOD UREA NITROGEN 11 MG/DL (7-18); BUN/CREATININE RATIO 15.7 (5.4-32.0); CALCIUM 7.9 MG/DL (8.5-10.1); CHLORIDE 107 MMOL/L (99-107); EOSINOPHILS # (AUTO) 0.1 X10'3 (0-0.9); EOSINOPHILS % (AUTO) 0.5 % (0-6); GLUCOSE 111 MG/DL (70-104); HEMATOCRIT 34.4 % (42.0-52.0); HEMOGLOBIN 11.3 g/dl (14.0-17.9); LYMPHOCYTES # (AUTO) 1.2 X10'3 (1.1-4.8); LYMPHOCYTES % (AUTO) 11.7 % (21-51); MAGNESIUM 1.6 MG/DL (1.5-2.4); MEAN CORPUSCULAR HEMOGLOBIN 28.2 PG (27.0-31.0); MEAN CORPUSCULAR HGB CONC 32.8 g/dL (33.0-36.5); MEAN PLATELET VOLUME 8.8 FL (7.4-10.4); MONOCYTES # (AUTO) 0.6 X10'3 (0-0.9); MONOCYTES % (AUTO) 5.6 % (2-12); NEUTROPHILS # (AUTO) 8.3 X10'3 (1.8-7.7); NEUTROPHILS % (AUTO) 81.8 % (42-75); PLATELET COUNT 120 X10'3 (140-440); POTASSIUM 3.9 MMOL/L (3.5-5.1); RED CELL DISTRIBUTION WIDTH 16.5 % (11.5-14.5); SODIUM 140 MMOL/L (135-145); TOTAL CARBON DIOXIDE 27.9 MMOL/L (24-32); TOTAL PROTEIN 6.3 G/DL (6.4-8.2); TRIGLYCERIDES 70 MG/DL (20-135); WHITE BLOOD COUNT 10.2 X10'3 (4.5-11.0); eGFR > 90 ML/MIN
[2021-12-08 04:53] LABS: APTT 30 SECONDS (22-32); D-DIMER 17.45 MG/L FEU (0-0.50)
[2021-12-08] MEDS: milrinone (Primacor) 20mg/D5W 100 ML IV PRN ×2 (05:07→09:33)
--- NOTE | 2021-12-08 06:19 | NUR ---
Problems reprioritized. Patient report given, questions answered & plan of care reviewed with LEN Reyes.
[2021-12-08] MEDS ORDERED: folic acid 1mg tablet PO SCH (08:00)
--- NOTE | 2021-12-08 08:29 | NUR ---
Family 6 family at pts bedside. Pt unresponsive. Questions answered & pt positioned to comfort. Advised them to notify me if they have any questions. Addendum: 12/08/21 at 0851 by Eric Reid RN Discussed AM meds w/HANNAH and will discuss with VIRI BARRETO prior to admin.
[2021-12-08] MEDS ORDERED: morphine 4 MG/ML inj SYRINge IV PRN (10:10)
--- NOTE | 2021-12-08 11:08 | NUR ---
RN IS TO DOCUMENT YES TO ALL APPLICABLE AREAS Pronouncement of : 1. Time Physician Notified: Dr. Rutherford at 1050 2. Date of : 12/08/2021 3. Time of : 10:44 AM 4. DNR/Withdraw life support documented: Yes 5. Monitor strip has been placed on chart: Yes 6. Assessment process is of one-minute duration and includes following criteria: a) Patient is unresponsive to all stimuli: Yes b) Pupils fixed and non-reactive: Yes c) Auscultation of precordium reveals absence of heart tones: Yes d) Auscultation of lungs reveals absence of breath sounds: Yes e) Absence of blood pressure / all vital signs: Yes f) QRS complexes are not present on monitor / EKG strip: Yes g) Pacer spikes without capture: N/A 4. Comments: Pt had large group of family at bedside. All waited until he'd before leaving. MEET UrrutiaW to see pt as well.
--- NOTE | 2021-12-08 14:28 | NUR ---
Depart [facility] security staff. No belongings located and pt mother aware as room was search with her there.
== END 2021-12-08 10:44 | DRG 720 ==
LOC: ER 17:20 → ED HOLD 20:42 → PCU 3S 12-04 00:22 → CICU 2S 12-04 17:17
PROVIDERS: ADMIT Family Medicine; ATTEND Internal Medicine
PROC: 5A1945Z Respiratory Ventilation, 24-96 Consecutive Hours (ICD-10-PCS; principal; 2021-12-04)
PROC: 0BH17EZ Insertion of Endotracheal Airway into Trachea, Via Natural or Artificial Opening (ICD-10-PCS; 2021-12-04)
PROC: 30233K1 Transfusion of Nonautologous Frozen Plasma into Peripheral Vein, Percutaneous Approach (ICD-10-PCS; 2021-12-04)
PROC: 02HV33Z Insertion of Infusion Device into Superior Vena Cava, Percutaneous Approach (ICD-10-PCS; 2021-12-04)
PROC: B548ZZA Ultrasonography of Superior Vena Cava, Guidance (ICD-10-PCS; 2021-12-04)
PROC: 04HY32Z Insertion of Monitoring Device into Lower Artery, Percutaneous Approach (ICD-10-PCS; 2021-12-04)
PROC: 02HV33Z Insertion of Infusion Device into Superior Vena Cava, Percutaneous Approach (ICD-10-PCS; 2021-12-05)
PROC: 5A2204Z Restoration of Cardiac Rhythm, Single (ICD-10-PCS; 2021-12-05)
PROC: 5A12012 Performance of Cardiac Output, Single, Manual (ICD-10-PCS; 2021-12-05)
DX: A41.9 Sepsis, unspecified organism (principal); K76.7 Hepatorenal syndrome; R65.21 Severe sepsis with septic shock; I50.23 Acute on chronic systolic (congestive) heart failure; K70.40 Alcoholic hepatic failure without coma; J80 Acute respiratory distress syndrome; I82.433 Acute embolism and thrombosis of popliteal vein, bilateral; N17.9 Acute kidney failure, unspecified; D69.6 Thrombocytopenia, unspecified; I42.6 Alcoholic cardiomyopathy; I46.9 Cardiac arrest, cause unspecified; I42.7 Cardiomyopathy due to drug and external agent; Z20.822 Contact with and (suspected) exposure to COVID-19; J18.9 Pneumonia, unspecified organism; L30.9 Dermatitis, unspecified; K70.31 Alcoholic cirrhosis of liver with ascites; Z66 Do not resuscitate; I73.9 Peripheral vascular disease, unspecified; E66.01 Morbid (severe) obesity due to excess calories; K70.11 Alcoholic hepatitis with ascites; E03.9 Hypothyroidism, unspecified; F10.20 Alcohol dependence, uncomplicated; F12.10 Cannabis abuse, uncomplicated; I48.91 Unspecified atrial fibrillation; L03.116 Cellulitis of left lower limb; L97.919 Non-pressure chronic ulcer of unspecified part of right lower leg with unspecified severity; L97.929 Non-pressure chronic ulcer of unspecified part of left lower leg with unspecified severity; Z51.5 Encounter for palliative care; Z59.00 Homelessness unspecified; Z72.0 Tobacco use; Z79.899 Other long term (current) drug therapy; Z71.51 Drug abuse counseling and surveillance of drug abuser; Z71.6 Tobacco abuse counseling; Z68.39 Body mass index [BMI] 39.0-39.9, adult
CPT/HCPCS: 36415; 36430; 36600; 71045; 71250; 74176; 80053; 80061; 80162; 80305; 80320; 81001; 82140; 82550; 82803; 82810; 82948; 83036; 83605; 83690; 83735; 83880; 84100; 84145; 84439; 84443; 84478; 84481; 84484; 85018; 85025; 85379; 85384; 85610; 85730; 86592; 86703; 86706; 86803; 86885; 86900; 86901; 87040; 87070; 87081; 87340; 87502; 87503; 87522; 87635; 92950; 93005; 93306; 93925; 94002; 94003; 94640; 94660; 94760; 94799; 96365; 96367; 96368; 96375; 99285; C9113; C9803; G0378; J0171; J0282; J0456; J0461; J0610; J0696; J1160; J1250; J1265; J1630; J1650; J1940; J2060; J2260; J2543; J2704; J3010; J3370; J3411; J3475; J3480; J3490; J7030; J7040; J7050; P9059